=== PATIENT | female | born 1945 | race Caucasian/White ===

== ENCOUNTER 2017-06-28 11:08 | Outpatient (CLI) | payer MEDICARE | END 2017-06-28 11:09 | disposition home or self-care (01) | LOC: BICMAMMO 11:08 | PROVIDERS: ATTEND Obstetrics & Gynecology | DX: Z12.31 Encounter for screening mammogram for malignant neoplasm of breast (principal) | CPT/HCPCS: 77063; 77067 ==

== ENCOUNTER 2017-11-22 11:08 | Outpatient (CLI) | payer MEDICARE | END 2017-11-22 11:09 | disposition home or self-care (01) | LOC: BICMAMMO 11:08 | PROVIDERS: ATTEND Obstetrics & Gynecology | DX: M81.0 Age-related osteoporosis without current pathological fracture (principal); N95.9 Unspecified menopausal and perimenopausal disorder | CPT/HCPCS: 77080 ==

== ENCOUNTER 2018-07-03 10:49 | Outpatient (CLI) | payer MEDICARE | END 2018-07-03 10:50 | disposition home or self-care (01) | LOC: BICMAMMO 10:49 | PROVIDERS: ATTEND Obstetrics & Gynecology | DX: Z12.31 Encounter for screening mammogram for malignant neoplasm of breast (principal); Z80.3 Family history of malignant neoplasm of breast | CPT/HCPCS: 77063; 77067 ==

== ENCOUNTER 2020-07-25 10:36 | Outpatient (CLI) | payer MEDICARE ==
--- NOTE | 2020-07-25 11:19 | BD ---
DEXA bone density scan: 07/25/2020 COMPARISON: 11/22/2017. HISTORY: Postmenopausal female undergoing screening for osteoporosis. FINDINGS: Lumbar Spine BMD (g/cm2) L1 0.843 T-Score -1.3 (previous -1.1) L2 0.755 T-Score -2.5 (previous -2.5) L3 0.710 T-Score -3.4 (previous -3.1) L4 0.655 T-Score -3.7 (previous -3.4) L1-L4 0.736 T-Score -2.8 (previous -2.6) Femoral Neck 0.518 T-Score -3.0 (previous -2.8) Total Femur 0.595 T-Score -2.8 (previous -2.7) FRAX-WHO fracture risk assessment tool is not reported as some T-Scores are at or below -2.5. IMPRESSION: Diffuse osteoporosis correlating with a high risk for fracture as detailed above. Transcribed Date/Time: 07/25/2020 1:31 PM
== END 2020-07-25 10:37 | disposition home or self-care (01) ==
LOC: BICMAMMO 10:36
PROVIDERS: ATTEND Obstetrics & Gynecology
DX: Z13.820 Encounter for screening for osteoporosis (principal); N95.9 Unspecified menopausal and perimenopausal disorder; M81.0 Age-related osteoporosis without current pathological fracture
CPT/HCPCS: 77080